=== PATIENT | male | born 1970 | race Caucasian/White ===

== ENCOUNTER 2021-05-03 13:54 | Emergency (ER) | payer OTHER ==
[~2021-05-03 13:54] MED LIST: CELEXA20 MG PO; CLARITIN10 MG PO; FLONASE ALLER15.8 ML; FLOVENT DISKUS50 MCG; GABAPENTIN800 MG PO; K-DUR20 MEQ PO; LASIX20 MG PO; PANTOPRAZOLE SO20 MG PO; SINGULAIR10 MG PO; TOPROL XL25 MG PO
[2021-05-03 14:41] LABS: ALBUMIN 2.4 g/dL (3.4-5.0); BILIRUBIN - TOTAL 0.3 mg/dL (0.2-1.0); BUN/CREAT RATIO (CALC) 8.9 RATIO; CREATININE 6.5 mg/dL (0.67-1.17); GLOBULIN (CALCULATION) 4.5 g/dL; POTASSIUM 3.3 mmol/L (3.5-5.1); TOTAL PROTEIN 6.9 g/dL (6.4-8.2)
[2021-05-03 14:47] LABS: LACTIC ACID 7.6 mmol/L (0.4-1.9)
[2021-05-03 14:52] LABS: EOSINOPHIL 0 % (0-5); HCT 39.1 % (42.0-52.0); HGB 13.9 g/dl (13.2-18.0); LYMPHOCYTE 5.8 % (15-48); MCH 33.6 pg (25.0-31.0); MCHC 35.5 g/dL (32.0-36.0); MCV 94.4 fL (78.0-100.0); MONOCYTE 1.8 % (0-12); NRBC 0; PLT 194 K/uL (150-400); RBC 4.14 M/uL (4.70-6.00); RDW 14.3 % (11.5-14.0)
[2021-05-03 14:53] LABS: NEUTROPHIL 90.6 % (41-80)
[2021-05-03 16:14] LABS: CORONAVIRUS 2019 SARS-COV-2 NEGATIVE (NEGATIVE); INFLUENZA A NAA NEGATIVE (NEGATIVE)
== END 2021-05-03 23:13 | disposition other institution (70) ==
LOC: FER 13:54
PROVIDERS: Emergency Medicine
DX: A41.9 Sepsis, unspecified organism (principal); J18.9 Pneumonia, unspecified organism; N17.9 Acute kidney failure, unspecified; Z20.822 Contact with and (suspected) exposure to COVID-19; F17.200 Nicotine dependence, unspecified, uncomplicated; Z88.2 Allergy status to sulfonamides
CPT/HCPCS: 36415; 71045; 80053; 83605; 84484; 85025; 85379; 87040; 87880; 93005; J0456; J0696; J2930; J7030; J7050; U0002

== ENCOUNTER 2021-12-10 18:32 | Emergency (ER) | payer OTHER ==
[2021-12-10] MEDS ORDERED: CYCLOBENZAPRINE10 MG PO (20:33)
[2021-12-10] MEDS ORDERED: MEDROL 4MG DOSEP4 MG PO (20:33)
== END 2021-12-10 20:53 | disposition home or self-care (01) ==
LOC: FER 18:32
DX: R10.32 Left lower quadrant pain (principal); I10 Essential (primary) hypertension; Z88.2 Allergy status to sulfonamides; Z79.899 Other long term (current) drug therapy; W00.0XXA Fall on same level due to ice and snow, initial encounter; Y92.009 Unspecified place in unspecified non-institutional (private) residence as the place of occurrence of the external cause
CPT/HCPCS: 73502; J1100

== ENCOUNTER 2022-02-14 04:09 | Emergency (ER) | payer OTHER ==
[~2022-02-14 04:09] MED LIST changes: +CYCLOBENZAPRINE10 MG PO; +MEDROL 4MG DOSEP4 MG PO
[2022-02-14 04:42] LABS: BILIRUBIN NEGATIVE (NEGATIVE); BLOOD NEGATIVE Ery/uL (NEGATIVE); CLARITY CLEAR (CLEAR); COLOR YELLOW (YELLOW); GLUCOSE (U) NORMAL (NORMAL); LEUKOCYTES NEGATIVE Leu/uL (NEGATIVE); NITRITE NEGATIVE (NEGATIVE); PROTEIN 1+ mg/dL (NEGATIVE); SPECIFIC GRAVITY >=1.030 (1.001-1.030); UROBILINOGEN 0.2 mg/dL (0.2-1.0)
[2022-02-14 04:49] LABS: BACTERIA 1+
[2022-02-14 04:50] LABS: GRANULAR CASTS MODERATE; URINARY RBC RARE
[2022-02-14] MEDS ORDERED: CEPHALEXIN500 M1 PO (04:56)
== END 2022-02-14 05:08 | disposition home or self-care (01) ==
LOC: FER 04:09
PROVIDERS: Emergency Medicine
DX: R30.0 Dysuria (principal); E11.22 Type 2 diabetes mellitus with diabetic chronic kidney disease; I12.9 Hypertensive chronic kidney disease with stage 1 through stage 4 chronic kidney disease, or unspecified chronic kidney disease; N18.9 Chronic kidney disease, unspecified; F17.200 Nicotine dependence, unspecified, uncomplicated; Z88.2 Allergy status to sulfonamides
CPT/HCPCS: 81001; 87088; 99283

== ENCOUNTER 2022-02-23 08:59 | Emergency (ER) | payer OTHER ==
[~2022-02-23 08:59] MED LIST changes: +CEPHALEXIN500 M1 PO
[2022-02-23] MEDS ORDERED: ROBAXIN750 MG PO (11:14)
[2022-02-23] MEDS ORDERED: NAPROXEN500 MG PO (11:14)
[2022-02-23] MEDS ORDERED: NORCO 5-325 TA1 EACH PO (11:14)
== END 2022-02-23 11:47 | disposition home or self-care (01) ==
LOC: FER 08:59
DX: M87.9 Osteonecrosis, unspecified (principal); M47.26 Other spondylosis with radiculopathy, lumbar region; F17.210 Nicotine dependence, cigarettes, uncomplicated; I10 Essential (primary) hypertension; Z88.2 Allergy status to sulfonamides
CPT/HCPCS: 72131; 73502; 73560; 73700; J7512

== ENCOUNTER 2022-03-26 20:57 | Emergency (ER) | payer OTHER ==
[~2022-03-26 20:57] MED LIST changes: +NAPROXEN500 MG PO; +NORCO 5-325 TA1 EACH PO; +ROBAXIN750 MG PO
[2022-03-26] MEDS ORDERED: MEDROL 4MG DOSEP4 MG PO (22:46)
== END 2022-03-26 22:52 | disposition home or self-care (01) ==
LOC: FER 20:57
DX: M25.552 Pain in left hip (principal); F17.210 Nicotine dependence, cigarettes, uncomplicated; I10 Essential (primary) hypertension; Z88.2 Allergy status to sulfonamides; Z79.899 Other long term (current) drug therapy
CPT/HCPCS: 99283

== ENCOUNTER → 2022-04-19 | Day surgery (SDC) | payer OTHER ==
[~2022-04-19] VITALS: Ht 172.7 cm; Wt 74.8 kg
[~2022-04-19] MED LIST changes: +B COMPLEX1 EACH PO; +CLONIDINE HCL0.1 MG PO; +JANUVIA 100MG100 MG PO; +LISINOPRIL10 MG PO; +MOBIC7.5 MG PO; +VITAMIN D3125 MC1 PO
[2022-04-19 07:17] LABS: BUN/CREAT RATIO (CALC) 24.7 RATIO; CREATININE 0.85 mg/dL (0.67-1.17); POTASSIUM 3.4 mmol/L (3.5-5.1)
== END | disposition home or self-care (01) ==
LOC: FAS 06:04
PROVIDERS: Anesthesiology
DX: M16.12 Unilateral primary osteoarthritis, left hip (principal); M87.859 Other osteonecrosis, unspecified femur; I10 Essential (primary) hypertension; F17.200 Nicotine dependence, unspecified, uncomplicated; Z88.2 Allergy status to sulfonamides; Z79.899 Other long term (current) drug therapy
CPT/HCPCS: 36415; 76000; 80048; J1040; J2250; J7120; Q9967

== ENCOUNTER 2022-04-30 15:29 | Emergency (ER) | payer OTHER ==
[2022-04-30] MEDS ORDERED: LIDOCAINE 5% P1 EACH TOP (15:54)
== END 2022-04-30 17:36 | disposition home or self-care (01) ==
LOC: FER 15:29
DX: M87.9 Osteonecrosis, unspecified (principal); I13.0 Hypertensive heart and chronic kidney disease with heart failure and stage 1 through stage 4 chronic kidney disease, or unspecified chronic kidney disease; N18.9 Chronic kidney disease, unspecified; I50.9 Heart failure, unspecified; F17.210 Nicotine dependence, cigarettes, uncomplicated; Z79.899 Other long term (current) drug therapy
CPT/HCPCS: 99283

== ENCOUNTER 2022-06-06 05:24 | Day surgery (SDCO) | payer OTHER ==
[~2022-06-06] VITALS: Ht 173 cm; Wt 77.6 kg
[~2022-06-06 05:24] MED LIST changes: +LIDOCAINE 5% P1 EACH TOP
[2022-06-07 04:41] LABS: BASOPHIL 0.4 % (0-2); HCT 31.7 % (42.0-52.0); LYMPHOCYTE 10.8 % (15-48); MCH 30.4 pg (25.0-31.0); MCHC 31.5 g/dL (32.0-36.0); MCV 96.4 fL (78.0-100.0); MONOCYTE 12.7 % (0-12); MPV 9.9 fL (6.0-9.5); NEUTROPHIL 73.7 % (41-80); NRBC 0; PLT 201 K/uL (150-400); RBC 3.29 M/uL (4.70-6.00); RDW 15.1 % (11.5-14.0); WBC 15.5 K/uL (4.0-10.5)
[2022-06-07 04:57] LABS: CREATININE 0.9 mg/dL (0.67-1.17); POTASSIUM 4.1 mmol/L (3.5-5.1)
[2022-06-07 06:20] LABS: BILIRUBIN NEGATIVE (NEGATIVE); BLOOD NEGATIVE Ery/uL (NEGATIVE); CLARITY CLEAR (CLEAR); COLOR YELLOW (YELLOW); GLUCOSE (U) NORMAL (NORMAL); LEUKOCYTES NEGATIVE Leu/uL (NEGATIVE); NITRITE NEGATIVE (NEGATIVE); PROTEIN NEGATIVE (NEGATIVE); UROBILINOGEN 0.2 mg/dL (0.2-1.0)
--- NOTE | 2022-06-07 07:20 | NUR ---
PT TRANSFERED FROM [facility] - REPORT RECIEVED FROM JENI RN - PT ORIENTED TO ROOM-PT [id number] ABLE TO MAKE WANTS AND NEEDS KNOW. 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 Yaniv BROWNING APRN AWARE. RATED PAIN A 10 TO LEFT HIP. Yaniv BROWNING AWARE AND SAID TO WAIT ON ORDERED PAIN PILLS BECAUSE HE JUST RECEIVED 4 MG OF MORPHINE IVP, Yaniv Browning APRN MADE AWARE TEMP 100.9 ORAL SAID THAT SHE ORDERED IV ABT BUT TO WAIT UNTIL HIS BLOOD CULTURES ARE DRAWN.
[2022-06-08 07:24] LABS: BASOPHIL 0.3 % (0-2); EOSINOPHIL 4.4 % (0-5); HCT 26.8 % (42.0-52.0); HGB 8.8 g/dl (13.2-18.0); LYMPHOCYTE 6.4 % (15-48); MCH 30.1 pg (25.0-31.0); MCHC 32.8 g/dL (32.0-36.0); MCV 91.8 fL (78.0-100.0); MONOCYTE 8.7 % (0-12); MPV 9.7 fL (6.0-9.5); NEUTROPHIL 79.7 % (41-80); NRBC 0; PLT 225 K/uL (150-400); RBC 2.92 M/uL (4.70-6.00); RDW 14.9 % (11.5-14.0); WBC 14.9 K/uL (4.0-10.5)
[2022-06-08] MEDS ORDERED: FEOSOL325 MG PO (08:47)
[2022-06-08] MEDS ORDERED: CHILDREN'S ASPI81 MG PO (08:47)
== END 2022-06-08 11:10 | disposition home or self-care (01) ==
LOC: FAS 05:24 → FOR 07:00 → FAS 07:00 → FMS 09:12 → FOR 10:00 → FTCU 06-07 06:08 → FICU 06-07 06:56 → FMS 06-07 14:45 → FAS 06-07 14:45 → FICU 06-07 14:45 → FMS 06-07 15:09 → FICU 06-07 15:09 → FMS 06-07 15:09
PROVIDERS: Nurse Practitioner Acute Care; ADMIT Orthopaedic Surgery
DX: M16.12 Unilateral primary osteoarthritis, left hip (principal); M87.852 Other osteonecrosis, left femur; I10 Essential (primary) hypertension; E11.9 Type 2 diabetes mellitus without complications; F17.210 Nicotine dependence, cigarettes, uncomplicated; F32.A Depression, unspecified; Z88.2 Allergy status to sulfonamides
CPT/HCPCS: 0054T; 27130; 36415; 71045; 71275; 73501; 80048; 81003; 84484; 85025; 86850; 86900; 86901; 87040; 93005; 94010; 94760; 97110; 97116; 97161; 97166; 97535; C1776; G0378; J0171; J0692; J0697; J1170; J1885; J2250; J2270; J2704; J2795; J3010; J3370; J7040; J7120; Q9967

== ENCOUNTER 2022-07-04 22:16 | Emergency (ER) | payer OTHER ==
[~2022-07-04 22:16] MED LIST changes: +CHILDREN'S ASPI81 MG PO; +FEOSOL325 MG PO
== END 2022-07-05 00:24 | disposition home or self-care (01) ==
LOC: FER 22:16
DX: M25.562 Pain in left knee (principal); I10 Essential (primary) hypertension; F17.200 Nicotine dependence, unspecified, uncomplicated; Z88.2 Allergy status to sulfonamides
CPT/HCPCS: 73560; 93971